=== PATIENT | male | born 1955 | race Caucasian/White ===

== ENCOUNTER 2018-01-11 12:56 | Emergency (ER) | payer SELFPAY ==
--- NOTE | 2018-01-11 14:00 | RAD ---
RIGHT FOREARM 2 VIEWS: Date: 01/11/18 HISTORY: Fall, right forearm pain. FINDINGS/IMPRESSION: Right radius and ulna appear intact. POS: [facility]
--- NOTE | 2018-01-11 14:01 | RAD ---
2 VIEWS RIGHT HAND: Date: 01/11/18 COMPARISON: None. HISTORY: Injury, pain. FINDINGS: There is marked soft tissue swelling involving the right hand, both in the palmar aspect of the hand and in the dorsal aspect of the hand, particularly overlying the dorsal aspect of the metacarpals. No radiopaque foreign body or subcutaneous gas. No displaced fracture is seen. IMPRESSION: Prominent nonspecific soft tissue swelling. POS: [facility]
--- NOTE | 2018-01-11 14:10 | RAD ---
TWO VIEWS RIGHT HUMERUS: Date: 01-11-18 Comparison: None. History: Fall, trauma, pain. FINDINGS: There is a displaced obliquely oriented fracture involving the proximal/mid portion of the right padmini ral shaft. Distal fracture fragment is medially angulated and there is approximately 2-3 cm of medial displacement. IMPRESSION: Displaced and angulated obliquely oriented fracture of the proximal/mid right humeral shaft. POS: [facility]
[2018-01-11] MEDS ORDERED: HYDROcodone/Acetaminophen 7.5/325 mg Tablet ONE (14:20)
== END 2018-01-11 14:32 | disposition home or self-care (01) ==
LOC: SCSER 12:56
DX: S42.301A Unspecified fracture of shaft of humerus, right arm, initial encounter for closed fracture (principal); I10 Essential (primary) hypertension; J44.9 Chronic obstructive pulmonary disease, unspecified; E78.00 Pure hypercholesterolemia, unspecified; F17.210 Nicotine dependence, cigarettes, uncomplicated; Z79.899 Other long term (current) drug therapy; Z79.82 Long term (current) use of aspirin; Z71.6 Tobacco abuse counseling; W19.XXXA Unspecified fall, initial encounter
CPT/HCPCS: 99406

== ENCOUNTER 2018-12-13 09:16 | Outpatient (CLI) | payer OTHER, SELFPAY ==
--- NOTE | 2018-12-13 11:25 | HP ---
HISTORY OF PRESENT ILLNESS: Mr. Scot Oliver is a very pleasant 63-year-old gentleman, who presents to the [facility] for evaluation of multiple ulcerations of the right and left lower legs. The patient states that he was diagnosed with Buerger disease by Dermatology. He states that he was subsequently referred to Dr. Nava and ultrasound of the right and left lower extremities was obtained. The patient states that he was advised by Dr. Nava to discontinue all use of tobacco. He states he has no followup appointments with Dermatology or Cardiology. The patient states that he had lesions of the right and left lower legs, not associated with any drainage, which markedly worsened in appearance after an allergic reaction. The patient states that he believes the allergic reaction was precipitated by wearing a new shirt, which had not been laundered. He states that the allergic reaction was severe causing a rash over his right and left upper extremities and face. The patient was referred to the Wound Center by Dr. Torres on 12/06/2018. The patient states that for his wounds, he has been performing dressing changes of Vaseline, Telfa, and Kerlix after cleansing with soap and water. PAST MEDICAL HISTORY: 1. Chronic obstructive pulmonary disease. 2. Hypertension. 3. Coronary artery disease. 4. Buerger disease. PAST SURGICAL HISTORY: 1. Appendectomy. 2. Cholecystectomy. MEDICATIONS: 1. Pravastatin. 2. Aspirin. 3. Quetiapine. 4. Coreg. 5. Amlodipine. 6. Nifedipine. 7. Prednisone. 8. Multivitamin. ALLERGIES: CLINDAMYCIN, PENICILLIN. SOCIAL HISTORY: Social history is significant for tobacco use of 1 to 2 packs of cigarettes per day for 30 years. The patient states that he stopped smoking 1 week ago. The patient admits to the consumption of up to 6 drinks per week since his early 20s. FAMILY HISTORY: Family history is significant for coronary artery disease. The patient's father was diagnosed with coronary artery disease. Family history is also significant for diabetes mellitus. The patient states that his sister was diagnosed with diabetes mellitus. PHYSICAL EXAMINATION: VITAL SIGNS: Temperature 98.0, pulse 82, blood pressure 127/67. GENERAL: A 63-year-old gentleman, lying on table in examination room, in no acute distress. HEENT: Normocephalic and atraumatic. A rash is present over the face. NECK: No nuchal rigidity. CHEST: Clear to auscultation. CV: Regular rate and rhythm. ABDOMEN: Soft. EXTREMITIES: Multiple ulcerations are present over the right and left lower legs. An ulceration over the right anterior lower leg is present, which measures approximately 10.0 x 10.8 cm. Two ulcerations are present over the left lower leg, which measure approximately 11.0 x 5.3 cm and 3.5 x 4.0 cm. Both ulcerations are in the region of the malleoli. Each ulceration is associated with dry stable eschar. Three islands of skin are present within the margins of the right anterior lower leg ulceration. No purulent drainage is associated with any of the wounds. No cellulitis of the right or left lower extremity is appreciated. No maceration of the skin of the periwound of any of the wounds is noted. A dorsalis pedis pulse is palpable on the right and on the left. No significant edema of the right or left lower extremity is present on exam today. NEURO: Grossly nonfocal. ASSESSMENT AND PLAN: 1. Multiple ulcerations of right and left lower legs as described above. As stated above, the patient has been recently diagnosed with Buerger disease by Dermatology. The patient states that Cardiology was in agreement with the patient's diagnosis of Buerger disease. Dressing changes of [place] followed by [facility] are to be performed on a daily basis after cleansing and irrigation with soap and water. The patient has been asked to discontinue the use of Vaseline at the time of dressing changes. The patient states that his ulcerations have improved over the past 4 weeks. I will see Mr. Oliver again in 2 weeks. No antibiotics will be prescribed today based upon the appearance of the wounds. The patient understands and is in agreement with the preceding treatment plan. 2. Chronic obstructive pulmonary disease. 3. Hypertension. 4. Coronary artery disease. The patient states he is status post cardiac catheterization with the placement of 2 stents. 5. Buerger disease. Job ID: [id number]
== END 2018-12-13 09:17 | disposition home or self-care (01) ==
LOC: WCC 09:16
PROVIDERS: ATTEND Family Medicine
DX: I73.1 Thromboangiitis obliterans [Buerger's disease] (principal)

== ENCOUNTER 2018-12-27 10:19 | Outpatient (CLI) | payer OTHER ==
--- NOTE | 2018-12-27 11:35 | PRG ---
DATE OF SERVICE: 12/27/2018 PRIMARY CARE PHYSICIAN: Sarita Torres MD HISTORY: Mr. Scot Oliver is a very pleasant 63-year-old gentleman, who presents to the wound center for evaluation of ulcerations of the right and left lower legs. The patient previously stated he was diagnosed with Buerger disease by Dermatology. He stated that he was subsequently referred to Dr. Nava and ultrasound of the right and left lower extremities were obtained. The patient stated that he was advised by Dr. Nava to discontinue all use of tobacco. He stated that he had lesions of the right and left lower legs, not associated with any drainage, which markedly worsened in appearance after an allergic reaction. The patient stated that he believed the allergic reaction was precipitated by wearing a new shirt, which had not been laundered. He stated that the allergic reaction was severe, causing a rash over his right and left upper extremities and face. The patient was referred to the wound center by Dr. Torres on 12/06/2018. Prior to being seen in the wound center, the patient stated that for his wounds, he had been performing dressing changes of Vaseline, Telfa, and Kerlix after cleansing with soap and water. Today, the patient states that he has had an exacerbation of the rash of his right and left lower legs and right and left upper extremities. The rash also affects his face. The patient states that the rash is extremely pruritic. PHYSICAL EXAMINATION: VITAL SIGNS: Temperature 97.6, pulse 86, respirations 20, and blood pressure 95/54. EXTREMITIES: An ulceration is present over the right lower leg, which measures approximately 9.0 x 9.5 cm. An ulceration is present over the left lower leg, which measures approximately 10.0 x 4.3 cm. Both ulcerations are covered by eschar. No purulent drainage is associated with either wound. The ulcerations were located in the region of the rash, which affects the right and left lower extremities, right and left upper extremities, and face. Two biopsy specimens were obtained of the ulceration over the left medial ankle. The punch biopsy specimens were obtained after prepping the skin with Betadine and after local anesthesia was achieved with the use of 2% injectable lidocaine. One specimen was sent to Pathology in formalin. A second specimen was sent to Pathology in saline. The biopsy sites were then dressed with Surgicel, an ABD, and Coban. ASSESSMENT AND PLAN: 1. Multiple ulcerations of right and left lower legs as described above. The patient has a third ulceration over the left lateral ankle, which measures approximately 3 x 3.5 cm and also is covered by dry stable eschar. Biopsy of the wound over the left medial ankle was obtained today. The patient has been asked to contact the wound center in regard to the results of the biopsy. He states he will schedule a followup appointment with his primary care physician, Dr. Torres. 2. Chronic obstructive pulmonary disease. 3. Hypertension. 4. Coronary artery disease. The patient states he is status post cardiac catheterization with the placement of two stents. 5. Buerger disease. Job ID: [id number]
[2018-12-27] MEDS ORDERED: Sodium Chloride 0.9% 15 ML NEB ONE (15:00)
[2018-12-27] MEDS ORDERED: Lidocaine 2% 20 ml MDV ONE (15:00)
== END 2018-12-27 10:20 | disposition home or self-care (01) ==
LOC: WCC 10:19
PROVIDERS: ATTEND Family Medicine
DX: L97.929 Non-pressure chronic ulcer of unspecified part of left lower leg with unspecified severity (principal); L97.919 Non-pressure chronic ulcer of unspecified part of right lower leg with unspecified severity; J44.9 Chronic obstructive pulmonary disease, unspecified; I10 Essential (primary) hypertension; I25.10 Atherosclerotic heart disease of native coronary artery without angina pectoris; I73.1 Thromboangiitis obliterans [Buerger's disease]
CPT/HCPCS: 88305; 97602; A4218; J2001

== ENCOUNTER 2019-04-26 09:53 | Outpatient (CLI) | payer MEDICARE ==
--- NOTE | 2019-04-26 10:18 | ULT ---
ABDOMINAL AORTIC ULTRASOUND: CLINICAL HISTORY: Wellness screening. FINDINGS: Proximal abdominal aorta measures 2.2 cm, mid abdominal aorta 0.9 cm, and distal dominant 2 cm. There is no evidence of discrete aneurysm of the abdominal aorta. There is mild ectasia of the iliac arteries, left iliac artery 1.3 cm in diameter and right iliac art vish 1.1 cm in diameter. IMPRESSION: No sonographic evidence of abdominal aortic aneurysm. Transcribed Date/Time: 04/26/2019 10:39 AM
== END 2019-04-26 09:54 | disposition home or self-care (01) ==
LOC: SCSULT 09:53
PROVIDERS: ATTEND Family Medicine
DX: Z13.6 Encounter for screening for cardiovascular disorders (principal); Z00.00 Encounter for general adult medical examination without abnormal findings
CPT/HCPCS: 76706; 76775

== ENCOUNTER 2019-12-06 06:36 | Outpatient (CLI) | payer MEDICARE, OTHER ==
[2019-12-06 14:11] LABS: #Eosinphils 0.4 thou/uL (0.0-0.7); #Lymphocytes 1.4 thou/uL (1.20-3.40); #Monocytes 0.6 thou/uL (0.11-0.59); #Neutrophils 4.7 thou/uL (1.40-6.50); %Basophils 0.4 % (0.0-1.0); %Eosinophils 5.5 % (0.0-10.0); %Lymphocytes 19.7 % (21.0-51.0); %Monocytes 8.6 % (0.0-10.0); %Neutrophils 65.9 % (42.0-75.0); Hemoglobin 16.6 g/dL (14.0-18.0); Mean Corpuscular HGB CONC 33.2 g/dL (32.0-36.0); Mean Corpuscular Hemoglobin 32.8 pg (27.0-31.0); Mean Corpuscular Volume 98.8 fL (78.0-98.0); Mean Platelet Volume 6.9 fL (7.4-10.4); Platelet Count 220 thou/uL (130-400); RBC Distribution Width 12.1 % (11.5-14.5); Red Blood Cell (RBC) Count 5.06 mill/uL (4.70-6.10); White Blood Cell (WBC) Count 7.2 thou/uL (4.8-10.8)
[2019-12-06 14:31] LABS: ALT (SGPT) 21 U/L (8-55); AST (SGOT) 20 U/L (5-34); Alkaline Phosphatase 88 U/L (40-110); Anion Gap 13 mmol/L (10-20); BUN (Urea Nitrogen) 10 mg/dL (8.4-25.7); Bilirubin, Total 0.4 mg/dL (0.2-1.2); Calc. Creatinine Clearance 0 mL/min (70-130); Calcium 8.8 mg/dL (7.8-10.44); Carbon Dioxide 25 mmol/L (23-31); Chloride 105 mmol/L (98-107); Estimated GFR-MDRD Greater than 90; Globulin 2.6 g/dL (2.4-3.5); Glucose 159 mg/dL (80-115); Potassium 3.7 mmol/L (3.5-5.1); Protein, Total 6.6 g/dL (5.8-8.1); Sodium 139 mmol/L (136-145)
[2019-12-06 17:23] LABS: SARS-CoV-2 MS2 Positive; SARS-CoV-2 N Gene Negative; SARS-CoV-2 S Gene Negative; SARS-CoV-2 orf1ab Negative
== END 2019-12-06 06:37 | disposition home or self-care (01) ==
LOC: LABBT 06:36
PROVIDERS: ATTEND Internal Medicine Cardiovascular Disease
DX: Z01.812 Encounter for preprocedural laboratory examination (principal); Z11.59 Encounter for screening for other viral diseases; R06.00 Dyspnea, unspecified
CPT/HCPCS: 80053; 85025; U0003; 87635

== ENCOUNTER 2020-05-15 11:56 | Outpatient (CLI) | payer MEDICARE ==
--- NOTE | 2020-05-15 12:49 | RAD ---
EXAM: Two views chest PROVIDED CLINICAL HISTORY: Dyspnea. COMPARISON: None FINDINGS: Cardiac silhouette and pulmonary vasculature are within normal limits. The lungs are clear. There is calcification anterior longitudinal ligament. Vascular calcifications are seen in the thoracic aorta. IMPRESSION: No acute cardiopulmonary process.
== END 2020-05-15 11:57 | disposition home or self-care (01) ==
LOC: BICRAD 11:56
PROVIDERS: ATTEND Internal Medicine Critical Care Medicine
DX: R06.00 Dyspnea, unspecified (principal)
CPT/HCPCS: 71046

== ENCOUNTER 2020-10-23 19:00 | Outpatient (CLI) | payer MEDICARE | END 2020-10-23 19:01 | disposition home or self-care (01) | LOC: SLEEPLAB 19:00 | PROVIDERS: ATTEND Internal Medicine Critical Care Medicine | DX: G47.33 Obstructive sleep apnea (adult) (pediatric) (principal); R06.83 Snoring; J44.9 Chronic obstructive pulmonary disease, unspecified; G47.10 Hypersomnia, unspecified; I10 Essential (primary) hypertension; I25.10 Atherosclerotic heart disease of native coronary artery without angina pectoris; G47.00 Insomnia, unspecified; R09.02 Hypoxemia | CPT/HCPCS: 95810 ==

== ENCOUNTER 2021-06-07 10:19 | Outpatient (CLI) | payer MEDICARE ==
[2021-06-07 17:38] LABS: SARS-CoV-2 PCR by NAA Not Detected (NotDetected)
== END 2021-06-07 10:20 | disposition home or self-care (01) ==
LOC: LABBT 10:19
PROVIDERS: ATTEND Internal Medicine Gastroenterology
DX: Z01.812 Encounter for preprocedural laboratory examination (principal); Z86.010 Personal history of colon polyps; Z80.0 Family history of malignant neoplasm of digestive organs; Z20.822 Contact with and (suspected) exposure to COVID-19
CPT/HCPCS: U0003; U0005

== ENCOUNTER 2021-06-10 05:39 | Day surgery (SDC) | payer MEDICARE ==
[2021-06-09 10:48] VITALS: BMI 33.3
== END 2021-06-10 09:26 | disposition home or self-care (01) ==
LOC: SDC 05:39
PROVIDERS: ATTEND Internal Medicine Gastroenterology
PROC: 0DBH8ZX Excision of Cecum, Via Natural or Artificial Opening Endoscopic, Diagnostic (ICD-10-PCS; principal; 2021-06-10)
PROC: 0DBL8ZX Excision of Transverse Colon, Via Natural or Artificial Opening Endoscopic, Diagnostic (ICD-10-PCS; 2021-06-10)
PROC: 0DBN8ZX Excision of Sigmoid Colon, Via Natural or Artificial Opening Endoscopic, Diagnostic (ICD-10-PCS; 2021-06-10)
PROC: 0DBP8ZX Excision of Rectum, Via Natural or Artificial Opening Endoscopic, Diagnostic (ICD-10-PCS; 2021-06-10)
PROC: 0DBM8ZX Excision of Descending Colon, Via Natural or Artificial Opening Endoscopic, Diagnostic (ICD-10-PCS; 2021-06-10)
PROC: 3E0H8KZ Introduction of Other Diagnostic Substance into Lower GI, Via Natural or Artificial Opening Endoscopic (ICD-10-PCS; 2021-06-10)
DX: Z12.11 Encounter for screening for malignant neoplasm of colon (principal); D12.0 Benign neoplasm of cecum; D12.3 Benign neoplasm of transverse colon; D12.4 Benign neoplasm of descending colon; D12.5 Benign neoplasm of sigmoid colon; D12.8 Benign neoplasm of rectum; J44.9 Chronic obstructive pulmonary disease, unspecified; I10 Essential (primary) hypertension; E78.5 Hyperlipidemia, unspecified; Z86.010 Personal history of colon polyps; Z80.0 Family history of malignant neoplasm of digestive organs; Z79.82 Long term (current) use of aspirin; Z79.899 Other long term (current) drug therapy; Z88.0 Allergy status to penicillin; Z88.8 Allergy status to other drugs, medicaments and biological substances; Z95.5 Presence of coronary angioplasty implant and graft; Z99.81 Dependence on supplemental oxygen
CPT/HCPCS: 88305